=== PATIENT | female | born 2000 | race Caucasian/White ===

== ENCOUNTER 2018-02-12 10:15 | Emergency (ER) | payer OTHER ==
[2018-02-12] MEDS ORDERED: Dexamethasone IV* 4 MG/ML 1 ML (4 MG) IV SLOW PU ONE (11:38)
[2018-02-12] MEDS ORDERED: NS 0.9% 1000 ML* 1,000 ML IV ONE (11:38)
[2018-02-12] MEDS ORDERED: Ketorolac INJ* 30 MG/ML 1 ML VIAL IV PUSH ONE (11:38)
--- NOTE | 2018-02-12 11:45 | UC ---
UC General HPI - HPI Summary HPI Summary: Patient presents accompanied by her mother. She is complaining of a severe sore throat for the past 2 days. She is reporting a headache and body aches. She also notes having some diarrhea but only a couple of bouts and several bouts of vomiting. She has no associated abdominal pain. She has no travel history or recent antibiotic use. She has no prior hx of mono. + subjective fever and chills. Mom notes pt's voice is terrible. Patient notes pain with her swallow but is not having difficulty with swallowing. 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 [employer] Hx Last Menstrual Period: 02/08/18 Onset/Duration: Gradual Onset Timing: Constant Pain Intensity: 8 Associated Signs & Symptoms: Positive: Diarrhea, Fever, Vomiting - Allergy/Home Medications Allergies/Adverse Reactions: Allergies Allergy/AdvReac Type Severity Reaction Status Date / Time No Known Allergies Allergy Verified 02/12/18 11:00 Home Medications: Home Medications Oral Contraceptive 1 tab PO DAILY 02/12/18 [History Confirmed 02/12/18] PMH/Surg Hx/FS Hx/Imm Hx Previously Healthy: Yes - Surgical History Surgical History: Yes Surgery Procedure, Year, and Place: appendectomy 2016 - Family History Known Family History: Positive: None - Social History Occupation: Student Lives: Dormitory/Roommates Alcohol Use: Rare Substance Use Type: None Smoking Status (MU): Never Smoked Tobacco - Immunization History Vaccination Up to Date: Yes Review of Systems Constitutional: Fever, Chills Skin: Negative Eyes: Negative ENT: Sore Throat Respiratory: Negative Cardiovascular: Negative Gastrointestinal: Vomiting, Diarrhea Genitourinary: Negative Motor: Negative Neurovascular: Negative Musculoskeletal: Negative Neurological: Negative Psychological: Negative Is Patient Immunocompromised?: No All Other Systems Reviewed And Are Negative: Yes Physical Exam Triage Information Reviewed: Yes Appearance: Well-Appearing Vital Signs: Initial Vital Signs Temp 99.5 F 02/12/18 10:56 Pulse 90 02/12/18 10:56 Resp 18 02/12/18 10:56 BP 128/69 02/12/18 10:56 Pulse Ox 99 02/12/18 10:56 Vital Signs Reviewed: Yes Eyes: Positive: Conjunctiva Clear ENT: Positive: Pharyngeal erythema, TMs normal, Tonsillar swelling, Hoarse voice , Uvula midline - with moderate swelling.. Negative: Nasal congestion, Nasal drainage, Tonsillar exudate, Trismus Neck: Positive: Supple, Tenderness @ - peritonsilar nodes, Enlarged Nodes @ - peritonsilar. Respiratory: Positive: Lungs clear, Normal breath sounds Cardiovascular: Positive: RRR, No Murmur Abdomen Description: Positive: Nontender, No Organomegaly, Soft Bowel Sounds: Positive: Present Musculoskeletal: Positive: ROM Intact Neurological: Positive: Alert Psychological: Positive: Age Appropriate Behavior Skin Exam: Normal Diagnostics - Laboratory Diagnostic Studies Completed/Ordered: RAPID STREP=POSITIVE Re-Evaluation - Re-Evaluation First Eval Re-Evaluation Time: 13:05 Change: Improved - pt states feeling improved. taking po fluids. voice is better. less pharyngeal swelling on exam. Course/Dx - Course Course Of Treatment: Rapid strep is positive. No concern for peritonsillar abscess. Patient reports feeling much improved and on physical exam is improved post treatment. We'll continue outpatient antibiotics and steroids with close follow-up for recheck. Patient go to the ER for any change or worsening. - Differential Dx - Multi-Symptom Provider Diagnoses: strep pharyngitis Discharge - Sign-Out/Discharge Documenting (check all that apply): Patient Departure All imaging exams completed and their final reports reviewed: No Studies - Discharge Plan Condition: Improved Disposition: HOME Prescriptions: Amoxicillin/Clavulanate 600 [Augmentin ES-600 (NF)] 600 mg PO BID 10 Days #100 ml predniSONE TAB* [Deltasone 20 MG TAB*] 40 mg PO DAILY 3 Days #6 tab Patient Education Materials: Strep Throat (ED) Forms: *School Release Referrals: [facility] [Outside] - 3 Days Additional Instructions: Go directly to the emergency room for any worsening. Start the steroid(prednisone) tomorrow. - Billing Disposition and Condition Condition: IMPROVED Disposition: Home
[2018-02-12] MEDS ORDERED: cefTRIAXone VIAL(*) 1,000 MG VIAL ONE ×2 (11:49→12:29)
[2018-02-12] MEDS ORDERED: cefTRIAXone VIAL(*) 1,000 MG VIAL IVPB ONE (12:17)
[2018-02-12 13:04] VITALS: BP 115/61
== END 2018-02-12 13:40 | disposition home or self-care (01) ==
LOC: UCCORT 10:15
DX: J02.0 Streptococcal pharyngitis (principal)
CPT/HCPCS: 87651; 96361; 96374; 96376; 99204; G0463; J0696; J1100; J1885

== ENCOUNTER 2018-04-12 12:04 | Emergency (ER) | payer OTHER ==
[2018-04-12 12:39] VITALS: BP 122/67
--- NOTE | 2018-04-12 12:57 | UC ---
Throat Pain/Nasal Yared HPI - HPI Summary HPI Summary: Pt c/o sudden onset of ST, fever, chills X 2-3 days. - History of Current Complaint Chief Complaint: UCGeneralIllness Stated Complaint: SORE THROAT Time Seen by Provider: 04/12/18 12:38 Hx Obtained From: Patient Hx Last Menstrual Period: 04/05/18 ?: No Onset/Duration: Sudden Onset, Lasting Days, Still Present Severity: Moderate Pain Intensity: 5 Cough: None Associated Signs & Symptoms: Positive: Dysphagia, Fever - Epiglottits Risk Factors Epiglottis Risk Factors: Sudden Onset - Allergies/Home Medications Allergies/Adverse Reactions: Allergies Allergy/AdvReac Type Severity Reaction Status Date / Time No Known Allergies Allergy Verified 04/12/18 12:35 Home Medications: Home Medications Acetaminophen [Acetaminophen Extra Strength] 500 mg PO ONCE 04/12/18 [History Confirmed 04/12/18] PMH/Surg Hx/FS Hx/Imm Hx Previously Healthy: Yes - Surgical History Surgical History: Yes Surgery Procedure, Year, and Place: appendectomy 2015 - Family History Known Family History: Positive: Cardiac Disease - Social History Occupation: Student Lives: Dormitory/Roommates - [employer] Alcohol Use: Rare Substance Use Type: None Smoking Status (MU): Never Smoked Tobacco Have You Smoked in the Last Year: No - Immunization History Vaccination Up to Date: Yes Review of Systems All Other Systems Reviewed And Are Negative: Yes Constitutional: Positive: Fever, Chills, Fatigue Skin: Positive: Negative Eyes: Positive: Negative ENT: Positive: Sore Throat Respiratory: Positive: Negative Cardiovascular: Positive: Negative Gastrointestinal: Positive: Negative Genitourinary: Positive: Negative Motor: Positive: Negative Neurovascular: Positive: Negative Musculoskeletal: Positive: Myalgia Neurological: Positive: Headache Psychological: Positive: Negative Is Patient Immunocompromised?: No Physical Exam Triage Information Reviewed: Yes Appearance: Ill-Appearing Vital Signs: Initial Vital Signs Temp 100.4 F 04/12/18 12:35 Pulse 107 04/12/18 12:35 Resp 15 04/12/18 12:35 BP 122/67 04/12/18 12:35 Pulse Ox 100 04/12/18 12:35 Vital Signs Reviewed: Yes Eye Exam: Normal ENT: Positive: Tonsillar swelling, Tonsillar exudate Dental Exam: Normal Neck: Positive: Enlarged Nodes @ - bilateral submaxillary Respiratory Exam: Normal Cardiovascular Exam: Normal Musculoskeletal Exam: Normal Neurological Exam: Normal Psychological Exam: Normal Skin Exam: Normal Throat Pain/Nasal Course/Dx - Differential Dx/Diagnosis Differential Diagnosis/HQI/PQRI: Pharyngitis, Tonsillitis Provider Diagnosis: Strep throat Discharge - Sign-Out/Discharge Documenting (check all that apply): Patient Departure All imaging exams completed and their final reports reviewed: No Studies - Discharge Plan Condition: Stable Disposition: HOME Prescriptions: Penicillin VK* LIQ* [Penicillin VK 250 MG/5 ML* LIQ*] 10 ml PO Q6H #400 ml predniSONE TAB* [Deltasone 10 MG TAB*] 30 mg PO DAILY #12 tab Patient Education Materials: Strep Throat (ED) Forms: *School Release Referrals: [facility] [Outside] No Primary Care Phys,[facility] [Primary Care Provider] - - Billing Disposition and Condition Condition: STABLE Disposition: Home
== END 2018-04-12 13:06 | disposition home or self-care (01) ==
LOC: UCCORT 12:04
DX: J02.0 Streptococcal pharyngitis (principal); B95.0 Streptococcus, group A, as the cause of diseases classified elsewhere
CPT/HCPCS: 87651; 99212; G0463